=== PATIENT | female | born 1950 | race Caucasian/White ===

== ENCOUNTER → 2016-05-26 | Outpatient (CLI) | payer OTHER, MEDICARE ==
[2016-05-26 14:09] LABS: BASOPHIL % 0.6 % (0-2); PLATELET COUNT 235 x10^3mcL (130-400); RED CELL DISTRIBUTION WIDTH 14.4 % (11.5-14.5)
[2016-05-26 14:20] LABS: microscopic required? YES; urine erythrocyte NEGATIVE (NEGATIVE)
[2016-05-26 14:32] LABS: ALBUMIN 3.5 g/dL (3.4-5.0); BILIRUBIN TOTAL 0.6 mg/dL (0.20-1.00); CALCIUM 8.8 mg/dL (8.5-10.1); CARBON DIOXIDE 27.8 mmol/L (21-32); CHOLESTEROL/HDL RATIO 2.7; POTASSIUM SERUM 4.1 mmol/L (3.5-5.1); TOTAL PROTEIN, SERUM 7.2 g/dL (6.4-8.2)
== END | disposition home or self-care (01) ==
LOC: LB 13:33
PROVIDERS: Family Medicine
DX: Z01.818 Encounter for other preprocedural examination (principal); E11.29 Type 2 diabetes mellitus with other diabetic kidney complication

== ENCOUNTER 2016-07-24 06:00 | Inpatient (IN) | payer OTHER, MEDICARE ==
[2016-07-21 11:27] LABS: BASOPHIL % 0.5 % (0-2); PLATELET COUNT 219 x10^3mcL (130-400)
[2016-07-21 11:29] LABS: RED CELL DISTRIBUTION WIDTH 14.6 % (11.5-14.5)
[2016-07-21 11:36] LABS: UA SPECIFIC GRAVITY 1.015 (1.005-1.035); microscopic required? YES; urine erythrocyte NEGATIVE (NEGATIVE)
[2016-07-21 11:46] LABS: CALCIUM 9.5 mg/dL (8.5-10.1); CARBON DIOXIDE 30.1 mmol/L (21-32); POTASSIUM SERUM 3.4 mmol/L (3.5-5.1)
[~2016-07-24] VITALS: Ht 165.1 cm; Wt 93.9 kg
[2016-07-24 06:14] VITALS: BP 174/65
[2016-07-24 10:50] VITALS: Ht 165.1 cm; Wt 93.9 kg
[2016-07-24 14:00] VITALS: BP 123/51
[2016-07-24] MEDS ORDERED: GLIMEPIRIDE1 M1 PO (14:06)
[2016-07-24] MEDS ORDERED: NEU300 PO (14:12)
[2016-07-24] MEDS ORDERED: BACLOFEN10 MG PO (14:12)
[2016-07-24] MEDS ORDERED: MEMANTINE HCL10 MG PO (14:13)
[2016-07-24 14:15] LABS: ALBUMIN 3.4 g/dL (3.4-5.0); BILIRUBIN TOTAL 0.4 mg/dL (0.20-1.00); CALCIUM 9.1 mg/dL (8.5-10.1); CARBON DIOXIDE 28.8 mmol/L (21-32); CREATININE SERUM 1.1 mg/dL (0.6-1.0); MAGNESIUM 1.9 mg/dL (1.8-2.4); PHOSPHOROUS 4.4 mg/dL (2.5-4.9); POTASSIUM SERUM 4.4 mmol/L (3.5-5.1); TOTAL PROTEIN, SERUM 7.2 g/dL (6.4-8.2)
[2016-07-24] MEDS ORDERED: ATORVASTATIN CA20 M1 PO ×2 (14:17→14:18)
[2016-07-24 14:19] LABS: CHOLESTEROL/HDL RATIO 2.2
[2016-07-24] MEDS ORDERED: TRAZODONE50 M1 PO (14:19)
[2016-07-24] MEDS ORDERED: FUROSEMIDE20 MG PO (14:19)
[2016-07-24] MEDS ORDERED: ADVAIR DISKUS 51 AER INH (14:20)
[2016-07-24] MEDS ORDERED: PROAIR HFA8.5 GM INH (14:21)
[2016-07-24] MEDS ORDERED: SPIRIVA18 MC1 INH (14:22)
[2016-07-24 14:31] LABS: FREE T4 0.91 ng/dL (0.76-1.46); FREE THYROXINE INDEX 2.7 ug/dL (1.4-4.5); T4(THYROXINE) 8.8 ug/dL (4.7-13.3)
[2016-07-24 15:54] VITALS: BP 123/51
[2016-07-24 15:58] LABS: T3 TOTAL 1.14 ng/mL
[2016-07-24 16:37] VITALS: BP 123/51
[2016-07-24 18:30] VITALS: BP 140/54
[2016-07-24 21:26] VITALS: BP 119/48
[2016-07-25 06:09] VITALS: BP 110/45
[2016-07-25 07:16] LABS: BASOPHIL % 0.3 % (0-2); PLATELET COUNT 210 x10^3mcL (130-400)
[2016-07-25 07:29] LABS: RED CELL DISTRIBUTION WIDTH 14.7 % (11.5-14.5)
[2016-07-25 07:34] LABS: CALCIUM 8.6 mg/dL (8.5-10.1); CARBON DIOXIDE 28.6 mmol/L (21-32); PHOSPHOROUS 4.3 mg/dL (2.5-4.9); POTASSIUM SERUM 4.1 mmol/L (3.5-5.1)
[2016-07-25 09:45] VITALS: BP 117/51
[2016-07-25 13:20] VITALS: BP 102/44
[2016-07-25 18:30] VITALS: BP 105/43
[2016-07-25 21:28] VITALS: BP 107/48
[2016-07-26 07:16] VITALS: BP 114/51
[2016-07-26 09:45] VITALS: BP 121/56
[2016-07-26] MEDS ORDERED: BAY PO (13:18)
[2016-07-26] MEDS ORDERED: COL100 PO (13:19)
[2016-07-26] MEDS ORDERED: APAP/HYDROCODON1 T13 PO (13:19)
[2016-07-26] MEDS ORDERED: MAC100 PO (13:20)
[2016-07-26] MEDS ORDERED: GLU500 PO (13:21)
[2016-07-26] MEDS ORDERED: LAC PO (14:06)
[2016-07-26 15:58] VITALS: BP 121/56
== END 2016-07-26 16:45 | disposition home or self-care (01) | DRG 511 ==
LOC: DS 06:00 → MU 10:11 → DS 12:22 → MU 12:22 → DU 12:22 → MU 07-25 09:16
PROVIDERS: Neuromusculoskeletal Medicine, Sports Medicine; ADMIT Family Medicine
PROC: 0LQ10ZZ Repair Right Shoulder Tendon, Open Approach (ICD-10-PCS; principal; 2016-07-24 07:30)
DX: M75.121 Complete rotator cuff tear or rupture of right shoulder, not specified as traumatic (principal); N39.0 Urinary tract infection, site not specified; D68.69 Other thrombophilia; E11.65 Type 2 diabetes mellitus with hyperglycemia; E11.51 Type 2 diabetes mellitus with diabetic peripheral angiopathy without gangrene; M75.41 Impingement syndrome of right shoulder; E87.6 Hypokalemia; K21.9 Gastro-esophageal reflux disease without esophagitis; J44.9 Chronic obstructive pulmonary disease, unspecified; I16.0 Hypertensive urgency; E78.5 Hyperlipidemia, unspecified; R60.0 Localized edema; G30.9 Alzheimer's disease, unspecified; F02.80 Dementia in other diseases classified elsewhere, unspecified severity, without behavioral disturbance, psychotic disturbance, mood disturbance, and anxiety; G47.00 Insomnia, unspecified; Z68.36 Body mass index [BMI] 36.0-36.9, adult; Z87.891 Personal history of nicotine dependence
CPT/HCPCS: 83880; 84439; 94150; 97110-GP; G0480; J0330; J0690; J0696; J1170; J2175; J2250; J2405; J2704; J3010; J3490; J3535; J7030; J7050; J7120; J7613; J7620; J7626; Q0092

== ENCOUNTER 2016-07-26 17:15 | Emergency (ER) | payer OTHER, MEDICARE ==
[~2016-07-26 17:15] MED LIST: ADVAIR DISKUS 51 AER INH; APAP/HYDROCODON1 T13 PO; ATORVASTATIN CA20 M1 PO; BACLOFEN10 MG PO; BAY PO; COL100 PO; FUROSEMIDE20 MG PO; GLIMEPIRIDE1 M1 PO; GLU500 PO; LAC PO; MAC100 PO; MEMANTINE HCL10 MG PO; NEU300 PO; PROAIR HFA8.5 GM INH; SPIRIVA18 MC1 INH; TRAZODONE50 M1 PO
[2016-07-26 18:59] VITALS: BP 140/84
== END 2016-07-26 18:59 | disposition home or self-care (01) ==
LOC: ED 17:15
DX: S51.811A Laceration without foreign body of right forearm, initial encounter (principal); J45.909 Unspecified asthma, uncomplicated; Z79.51 Long term (current) use of inhaled steroids; Z79.899 Other long term (current) drug therapy; W01.0XXA Fall on same level from slipping, tripping and stumbling without subsequent striking against object, initial encounter; Y93.89 Activity, other specified; Y92.89 Other specified places as the place of occurrence of the external cause; Y99.8 Other external cause status

== ENCOUNTER 2017-05-17 00:35 | Emergency (ER) | payer OTHER, MEDICARE ==
[~2017-05-17] VITALS: Ht 165.1 cm; Wt 96.2 kg
[2017-05-17 00:53] VITALS: Ht 165.1 cm; Wt 96.2 kg
[2017-05-17 03:52] VITALS: BP 125/68
== END 2017-05-17 03:52 | disposition home or self-care (01) ==
LOC: ED 00:35
DX: S46.911A Strain of unspecified muscle, fascia and tendon at shoulder and upper arm level, right arm, initial encounter (principal); S00.31XA Abrasion of nose, initial encounter; S09.90XA Unspecified injury of head, initial encounter; E11.9 Type 2 diabetes mellitus without complications; J44.9 Chronic obstructive pulmonary disease, unspecified; W19.XXXA Unspecified fall, initial encounter; Y93.89 Activity, other specified; Y92.89 Other specified places as the place of occurrence of the external cause; Y99.8 Other external cause status
CPT/HCPCS: J1885; Q0092

== ENCOUNTER 2018-04-27 06:15 | Day surgery (SDC) | payer OTHER, MEDICARE ==
[~2018-04-27] VITALS: Ht 165.1 cm; Wt 90.7 kg
[2018-04-27 06:47] VITALS: BP 117/85
[2018-04-27 10:33] VITALS: BP 125/84
== END 2018-04-27 10:10 | disposition home or self-care (01) ==
LOC: DS 06:15 → GI 07:30 → OR 07:30 → DS 10:10
PROVIDERS: Internal Medicine
PROC: 0DB68ZX Excision of Stomach, Via Natural or Artificial Opening Endoscopic, Diagnostic (ICD-10-PCS; 2018-04-27)
PROC: 0DB48ZX Excision of Esophagogastric Junction, Via Natural or Artificial Opening Endoscopic, Diagnostic (ICD-10-PCS; principal; 2018-04-27 07:30)
DX: I85.00 Esophageal varices without bleeding (principal); K20.9 Esophagitis, unspecified; K76.6 Portal hypertension; K29.70 Gastritis, unspecified, without bleeding; K31.89 Other diseases of stomach and duodenum; K75.81 Nonalcoholic steatohepatitis (NASH)
CPT/HCPCS: 43235; 82962; J1200; J1610; J2250; J2310; J3010; J3490